=== PATIENT | male | born 1995 | race Caucasian/White ===

== ENCOUNTER 2020-12-31 12:01 | Emergency (ER) | payer OTHER, SELFPAY ==
[2020-12-31 12:02] VITALS: BP 133/82; PULSE 73; RESP 16; TEMP 36.8; O2SAT 99; BMI 37.7
--- NOTE | 2020-12-31 12:14 | ED_ITS ---
HPI - Male Genitourinary General Chief complaint: Urogenital-Male Stated complaint: STD Time Seen by Provider: 12/31/20 12:11 Source: patient Mode of arrival: ambulatory Limitations: no limitations History of Present Illness HPI Narrative: Otherwise healthy 25-year-old male denies significant past medical/surgical history presenting with complaint of states his ex-girlfriend who he has a open relationship with now intermittently intermittently involved yesterday he got a call that she tested positive for chlamydia. States he did not have any symptoms until this morning he has slight burning with urination. He otherwise denies any testicular pain or swelling. No rash or lesions. Denies any prior history of STI. No fever, back pain, abdominal pain, nausea vomiting or joint pain. MD Complaint: dysuria and possible STD exposure Onset (ago): hour(s) Duration: intermittent Location: penis Severity: mild Quality: burning Relieving factors: none Exacerbating factors: none Associated symptoms: Reports dysuria Related Data Sexually active: Yes Previous Rx's Medication Instructions Recorded doxycycline monohydrate 100 mg PO BID 7 Days #14 cap 12/31/20 Allergies Allergy/AdvReac Type Severity Reaction Status Date / Time No Known Allergies Allergy Unverified 07/13/20 19:45 [No Known Allergies*] Review of Systems Review of Systems: Constitutional: No Weight loss, No Fever, No Chills, No Night Sweats, No Fatigue, No Malaise ENT/Mouth: No Hearing loss, No Ear Pain, No Nasal Congestion, No Sinus Pain, No Hoarseness, No sore throat, No Rhinorrhea, No Swallowing Difficulty Eyes: No Eye Pain, No Swelling, No Redness, No Foreign Body, No Discharge, No Vision Changes Cardiovascular: No Chest Pain, No SOB, No Dyspnea on Exertion, No Orthopnea, No Edema, No Palpitations Respiratory: No Cough, No Sputum, No Wheezing, No Smoke Exposure, No Dyspnea Gastrointestinal: No Nausea, No Vomiting, No Diarrhea, No Constipation, No abdominal Pain, No Hematochezia, No Melena Genitourinary: + Dysuria, No Urinary Frequency, No Hematuria, No Urinary Incontinence, No Urgency, No Flank Pain, No Urinary Flow Changes, No Hesitancy Musculoskeletal: No joint pain, No Myalgias, No Joint Swelling Skin: No Skin Lesions, No rash Neuro: No Weakness, No Numbness, No Paresthesias, No Loss of Consciousness, No Dizziness, No Headache Psych: No Social Issues Heme/Lymph: No Bruising, No Bleeding,No Lymphadenopathy Endocrine: No Polyuria, No Polydipsia, No Temperature Intolerance Yes all other systems are reviewed and are negative [facility] Social History Social History Advance Directives: No Advance Directives Information Provided: No Physical Exam Vital Signs: Vital Signs: Last Vital Signs Temp 98.2 F 12/31/20 12:02 Pulse 73 12/31/20 12:02 Resp 16 12/31/20 12:02 BP 133/82 12/31/20 12:02 Pulse Ox 99 12/31/20 12:02 Body Mass Index 37.7 Reviewed Const: General: cooperative and healthy appearing; No acute distress or intoxicated appearing Nutritional Appearance: average body habitus Orientation/consciousness: patient oriented x3 HENMT: Head: Yes normal to inspection Ears: hearing grossly normal bilaterally Eyes: General: appearance normal, both eyes and all related structures Visual Vázquez: normal visual vázquez by confrontation Chest: Chest palpation & inspection: normal inspection of the chest Resp: Effort & Inspection: normal respiratory effort Cardio: Jugular venous distension: no JVD GI: Inspection: Yes normal to inspection Percussion: Yes normal to percussion Auscultation: normal bowel sounds : General: Yes no CVA tenderness and Yes deferred (pt ) Back/Spine/Pelvis: Back: no CVA tenderness Skin: General skin exam: no rashes or lesions noted Neuro: General: patient oriented x3 Extrem: General: Yes normal to inspection Course Course Course Narrative: UA, CT/NG given the exposure and having these mild symptoms dysuria will go ahead and treat with ceftriaxone 5 mg IM here and doxy 100 mg b.i.d. for 7 days. Will refer to [facility] for full panel STI testing and follow-up. He understands that he must abstain from any further sexual activity until he is cleared at the health center. MDM - Male Genitourinary Lab Data Labs: Lab Results 12/31/20 Range/Units 12:31 Urine Color YELLOW Urine Appearance CLEAR Urine pH 5.5 (5.0-8.0) Ur Specific [place] 1.025 (1.005-1.025) Urine Protein NEG (NEG-TRACE) MG/DL Urine Glucose (UA) NEG (NEG) MG/DL Urine Ketones NEG (NEG) MG/DL Urine Blood NEG (NEG) Urine Nitrite NEG (NEG) Ur Leukocyte Esterase NEG (NEG) Discharge Plan Discharge Clinical Impression: Dysuria, Exposure to sexually transmitted disease (STD) Patient Disposition: Home, Self-Care Instructions: Sexually Transmitted Diseases (ED), Dysuria (ED) Additional Instructions: Today you have been evaluated for possible contraction of a sexual transmitted disease. We have tested you for 2 common sexual transmitted diseases (chlamydia and gonorrhea) this test may take 24-48 hours to return with results we will call you only if positive. Given that you were exposed to your partner who was diagnosed with chlamydia we have gone ahead and treated you for both his empirically (meaning without waiting for results given the high suspicion) Please abstain from any further or sexual activity until you are cleared from Health Center after full panel STI testing Take medications as prescribed Return if any concerns or worsening symptoms Thank you Prescriptions: New doxycycline monohydrate 100 mg capsule 100 mg PO BID 7 Days Qty: 14 RF: 0 Referrals: Physician,None [Primary Care Provider] - 2 days ([facility] Address: [address] [place] [id number] )
[2020-12-31 12:41] LABS: Glucose Urine UA NEG (NEG); Leukocyte Esterase Urine NEG (NEG); Nitrite Urine NEG (NEG); PH 5.5 (5.0-8.0); Specific Gravity - Urine 1.025 (1.005-1.025); Urine Blood NEG (NEG); Urine Ketones NEG (NEG); Urine Protein NEG (NEG-TRACE)
[2020-12-31 12:46] LABS: Appearance Urine CLEAR; Color Urine YELLOW
[2020-12-31] MEDS: cefTRIAXone sodium 500 MG, Lidocaine HCl 1 % MPF 1 ML IM (12:50)
[2020-12-31 13:01] LABS: Mucus Urine 1+ /LPF; RBC Urine 0 /HPF (0)
[2020-12-31 15:08] LABS: CT PCR NOT DETECTED (Not Detect.); NG PCR NOT DETECTED (Not Detect.)
== END 2020-12-31 13:02 | disposition home or self-care (01) ==
PROVIDERS: Nurse Practitioner Primary Care; Emergency Provider Emergency Medicine
DX: R30.0 Dysuria (principal); Z20.2 Contact with and (suspected) exposure to infections with a predominantly sexual mode of transmission; Z79.899 Other long term (current) drug therapy
CPT/HCPCS: 81001; 87491; 87591; 96372; 99283; 99284; J0696

== ENCOUNTER 2021-09-05 15:36 | Outpatient (REF) | payer OTHER, SELFPAY | END 2021-09-05 15:37 | disposition home or self-care (01) | LOC: HO.LAB 15:36 | PROVIDERS: Visit Provider Internal Medicine | DX: Z20.822 Contact with and (suspected) exposure to COVID-19 (principal) | CPT/HCPCS: C9803; U0003; U0005 ==